=== PATIENT | male | born 1995 | race Caucasian/White ===

== ENCOUNTER 2018-03-18 11:11 | Emergency (ER) | payer MEDICAID, OTHER ==
[~2018-03-18] VITALS: Ht 167.6 cm; Wt 70.0 kg
[~2018-03-18 11:11] MED LIST: DICL75 PO
[2018-03-18 11:17] VITALS: BP 140/65; PULSE 66; RESP 18; TEMP 97.8; O2SAT 99
--- NOTE | 2018-03-18 12:47 | RADRPT ---
EXAM DATE: 03/18/2018 12:26 PM EDT AGE/SEX: 23 years / Male INDICATIONS: Right knee pain post playing softball CLINICAL DATA: This is the patient's initial encounter. Patient reports that signs and symptoms have been present for 2 days and indicates a pain score of 5/10. MEDICAL/SURGICAL HISTORY: . Patellar fracture x 3 None. COMPARISON: No prior exams available for comparison. FINDINGS: There are accessory ossicles at the superolateral patella. No acute fracture or dislocation. No bony destructive changes. CONCLUSION: Tripartite patella. No acute bony abnormality. Electronically signed by: Ector Calloway MD 03/18/2018 12:46 PM EDT
[2018-03-18] MEDS ORDERED: IBUPROFEN 800 MG TAB PO ONE (13:00)
--- NOTE | 2018-03-18 13:01 | PD ---
HPI Chief Complaint: Musculoskeletal Complaint Time Seen by Provider: 11:29 Travel History International Travel<30 days: No Contact w/Intl Traveler<30days: No Traveled to known affect area: No History of Present Illness HPI 23-year-old male here with right knee pain after playing softball yesterday. He cannot recall specific injury or trauma. He reports pain to the supra patella region which is worse with full flexion and twisting motion. Slightly relieved with rest. Denies altered sensation or weakness of the extremity. He reports a prior fracture to the patella years ago. Symptom severity is moderate. PFSH Past Medical History Medical History: Denies Significant Hx Diminished Hearing: No Immunizations Current: Yes ([employer]CHOOL [employer]OT[employer] UTD) Tetanus Vaccination: Unknown Influenza Vaccination: No ?: Not Past Surgical History Surgical History: No Previous Surgery Social History Alcohol Use: No Tobacco Use: Yes (dip) Substance Use: No Allergies-Medications (Allergen,Severity, Reaction): Coded Allergies: No Known Allergies (Verified Adverse Reaction, Unknown, 03/18/18) Reported Meds & Prescriptions Reported Meds & Active Scripts Active Diclofenac Sodium 75 Mg Tab 75 Mg PO BID Review of Systems Except as stated in HPI: all other systems reviewed are Neg Physical Exam Narrative GENERAL: Alert and well-appearing 23-year-old male SKIN: Warm and dry. HEAD: Normocephalic. EYES: No injection or drainage. NECK: Supple CARDIOVASCULAR: Regular rate and rhythm without murmurs, gallops, or rubs. RESPIRATORY: Breath sounds equal bilaterally. No accessory muscle use. GASTROINTESTINAL: Abdomen soft, non-tender, nondistended. MUSCULOSKELETAL: No cyanosis, or edema. Right lower extremity: +TTP suprapatellar region. The joint is stable. He has pain in the superior anterior aspect of the knee with full flexion. Palpable distal pulses. Normal sensation. Brisk cap refill. Data Data Last Documented VS Vital Signs Date Time Temp Pulse Resp B/P (MAP) Pulse Ox O2 Delivery O2 Flow Rate FiO2 03/18/18 11:17 97.8 66 18 140/65 (90) 99 Orders Orders Knee, Complete (4vws) (03/18/18 ) ^ Knee Immobilizer (03/18/18 12:56) Ibuprofen (Motrin) (03/18/18 13:00) MDM Medical Decision Making Medical Screen Exam Complete: Yes Emergency Medical Condition: Yes Differential Diagnosis Knee sprain, fracture, tendon ligamental injury Narrative Course 23-year-old male here with right knee pain. Extremities neurovascularly intact. X-ray is negative for fracture. X-rays reveals tripartite patella. Knee immobilizing splint was applied. He was instructed to follow-up with orthopedic verbalized understanding and agrees to plan Diagnosis Primary Impression: Knee sprain Qualified Codes: S83.91XA - Sprain of unspecified site of right knee, initial encounter Referrals: Primary Care Physician Additional Instructions: Knee immobilizing splint as directed. Tylenol and ibuprofen for pain. Ice and elevate the extremity. Follow-up with your primary doctor Disposition: 01 DISCHARGE HOME Condition: Stable Radha Nuno March 18, 2018 13:01
== END 2018-03-18 13:20 | disposition home or self-care (01) ==
LOC: PHEFT 11:11
DX: S83.91XA Sprain of unspecified site of right knee, initial encounter (principal); F17.220 Nicotine dependence, chewing tobacco, uncomplicated; Y93.64 Activity, baseball
CPT/HCPCS: 73564; 99283